=== PATIENT | female | born 1965 | race Caucasian/White ===

== ENCOUNTER 2017-06-01 15:00 | Emergency (ER) | payer MEDICARE, BC ==
--- NOTE | 2017-06-01 15:16 | ED.ADGEN ---
Past History Past Medical History: Cancer, Fibromyalgia, Other Past Surgical History: Other Alcohol Use: None Drug Use: None Adult General Chief Complaint Chief Complaint Right small toe injury HPI HPI Patient is a 52-year-old female presents with isolated right small toe injury. Patient was dismounting a ladder barefooted when she caught right small toe bottom rung degloving the right small toe moving two thirds of the skin. Injury occurred just prior to ED arrival. Patient denies other symptoms or complaint. Patient's tetanus is up-to-date. Patient last ate or drank 4 hours prior to ED arrival. Review of Systems Review of Systems Review symptoms as per history of present illness. All other review symptoms are negative. Current Medications Current Medications Current Medications Medications (Trade) Dose Ordered Sig/Ann Marie Start Time Stop Time Status Last Admin Dose Admin Cefazolin Sodium (Ancef) 1 gm STK-MED ONCE 06/01/17 16:02 06/01/17 16:03 DC Cefazolin Sodium 1 gm/Sodium Chloride 50 ml @ 100 mls/hr 1X ONCE 06/01/17 16:00 06/01/17 16:29 DC Fentanyl Citrate (Fentanyl 2ml Vial) 100 mcg STK-MED ONCE 06/01/17 15:56 06/01/17 15:57 DC Ondansetron HCl (Zofran) 4 mg 1X ONCE 06/01/17 16:00 06/01/17 16:01 DC Sodium Chloride 50 ml @ As Directed STK-MED ONCE 06/01/17 16:02 06/01/17 16:03 DC Allergies Allergies Allergies Coded Allergies Type Severity Reaction Last Updated Verified No Known Drug Allergies 06/01/17 No Physical Exam Physical Exam Constitutional: Well developed, well nourished, no acute distress, non-toxic appearance. [] HENT: Normocephalic, atraumatic, bilateral external ears normal, oropharynx moist, no oral exudates, nose normal. [] Eyes: PERRLA, EOMI, conjunctiva normal, no discharge. [] Neck: Normal range of motion, no tenderness, supple, no stridor. [] Cardiovascular:Heart rate regular rhythm, no murmur [] Lungs & Thorax: Bilateral breath sounds clear to auscultation [] Extremities: Right foot, degloved small toe and toenail with approximately two thirds phalanx exposed.[] Neurologic: Alert and oriented X 3, normal motor function, normal sensory function, no focal deficits noted. [] Psychologic: Affect, anxious. [] Current Patient Data Vital Signs Vital Signs Date Time Temp Pulse Resp B/P (MAP) Pulse Ox O2 Delivery O2 Flow Rate FiO2 06/01/17 15:24 98.9 105 22 96 Room Air EKG EKG [] Radiology/Procedures Radiology/Procedures [] Course & Med Decision Making Course & Med Decision Making Pertinent Labs and Imaging studies reviewed. (See chart for details) [Acute cr[facility]. Will transfer for surgical consult with anticipated amputation IV antibiotics ordered, ] Final Impression Final Impression [] Problems: Dragon Disclaimer Dragon Disclaimer This electronic medical record was generated, in whole or in part, using a voice recognition dictation system. JESSE ROWE DO Jun 01, 2017 15:16
--- NOTE | 2017-06-01 15:38 | RAD ---
Examination: 3 views of the right fifth toe History: History of trauma to the right to prior comparison: None available Findings The alignment of the fifth metatarsophalangeal joint, proximal interphalangeal joint grossly appears unremarkable.. The distal phalanx of the fifth toe is not clearly identified with the blunting of the distal portion of the middle phalanx fifth toe. Moderate soft tissue irregularity identified in the fifth toe. Impression: The distal phalanx of the fifth toe is not clearly identified with blunting and lucency in the distal portion of the middle phalanx fifth toe likely secondary to avulsion /fracture or traumatic amputation changes. Correlate clinically.
[2017-06-01] MEDS ORDERED: fentaNYL PF 100 MCG/2 ML VIAL ONE (15:56)
[2017-06-01] MEDS ORDERED: ONDANSETRON PF 4 MG/2 ML VIAL. IV ONE (16:00)
[2017-06-01] MEDS ORDERED: fentaNYL PF 100 MCG/2 ML VIAL IV ONE (16:00)
[2017-06-01] MEDS ORDERED: ceFAZolin SODIUM 1 GM VIAL ONE (16:02)
[2017-06-01] MEDS ORDERED: IV NORMAL SALINE 50ML 50 ML ONE (16:02)
[2017-06-01 16:10] VITALS: BP 120/71
[2017-06-01] MEDS ORDERED: MORPHINE SULFATE 4 MG/ML DISP.SYRIN. IV ONE (17:30)
== END 2017-06-01 17:25 | disposition short-term general hospital (02) ==
LOC: ER 15:00
DX: S99.921A Unspecified injury of right foot, initial encounter (principal); M79.7 Fibromyalgia; W11.XXXA Fall on and from ladder, initial encounter; Y93.89 Activity, other specified; Y99.8 Other external cause status; Y92.89 Other specified places as the place of occurrence of the external cause
CPT/HCPCS: 73660; 96365; 96375; 99285; J0690; J2270; J2405; J3010